=== PATIENT | female | born 1945 | race Hispanic/Latino ===

== ENCOUNTER → 2017-08-08 | Outpatient (CLI) | payer OTHER ==
[~2017-08-08] MED LIST: AMLODIPINE BESYL5 MG PO; CYCLOBENZAPRINE5 MG PO; DITROPAN XL10 MG PO; FLUOXETINE HCL20 MG PO; HYDROCHLOROTH12.5 M1 PO; IOPAMIDOL 370 MG/ML 200 ML INFUS..BTL INJ ONE; MEDROL4 MG PO; OMEPRAZOLE20 MG PO; PRAVASTATIN SOD80 MG PO; SODIUM CHLORIDE 0.9% 50ML 50 ML ONE; SYNTHROID125 MCG PO; VITAMIN D PO
[2017-08-08 10:10] LABS: BLOOD UREA NITROGEN 17 mg/dL (7-26); BUN/CREATININE RATIO 27 (6-25); CREATININE, SERUM 0.63 mg/dL (0.57-1.11); EST GLOMERULAR FILTRATION RATE > 60 ML/MIN (60-)
--- NOTE | 2017-08-08 12:22 | Diagnostic Imaging Report ---
PROCEDURE: CT ABDOMEN WITH CONTRAST TECHNIQUE: The abdomen was scanned utilizing a multidetector helical scanner from the diaphragm to the iliac crest after the IV administration of 100 cc of Isovue 370 and the oral administration of water. Coronal and sagittal multiplanar reformations were obtained. COMPARISON: CT abdomen and pelvis 04/30/2012. INDICATIONS: LEFT ABD PAIN FINDINGS: LOWER THORAX: Normal. HEPATOBILIARY: No focal hepatic lesions. No biliary ductal dilatation. Cholecystectomy. SPLEEN: No spleen is visualized. PANCREAS: No focal masses or ductal dilatation. ADRENALS: 1.1 cm right adrenal nodule with internal attenuation measurement of 55.2 Hounsfield units. No left adrenal nodule. KIDNEYS: No hydronephrosis, stones, or solid mass lesions. Bilateral parapelvic renal cysts. Left renal hypodensity too small to characterize. PERITONEUM / RETROPERITONEUM: No free air or fluid. LYMPH NODES: No lymphadenopathy. VESSELS: Atherosclerotic calcifications. GI TRACT: Visualized portions of the bowel demonstrate no distention or wall thickening. Postoperative changes of Anita fundoplication. BONES AND SOFT TISSUES: Unremarkable. IMPRESSION: No acute abnormality of the abdomen. Correlate with surgical history for splenectomy. Right adrenal nodule is indeterminate. A CT of the abdomen with adrenal mass protocol may provide additional information for further characterization. Dictated by: Frederick Vuong M.D. on 08/08/2017 at 12:22 Electronically approved by: Frederick Vuong M.D. on 08/08/2017 at 12:22
== END ==
LOC: CT 09:19
PROVIDERS: ATTEND Surgery
DX: R10.32 Left lower quadrant pain (principal); E27.9 Disorder of adrenal gland, unspecified
CPT/HCPCS: 36415; 74160; 82565; 84520; Q9967